=== PATIENT | female | born 1985 | race Caucasian/White ===

== ENCOUNTER → 2018-04-03 12:35 | Outpatient (CLI) | payer OTHER, SELFPAY ==
[2018-04-03 15:43] LABS: Absolute Lymphocyte Count 1.36 X10^3/ul (0.83-4.51); Absolute Neutrophil Count 5.3 X10^3/uL (2.0-7.7); Basophil# 0.04 X10^3/uL; Basophil% 0.5 % (0-1); Eosinophil# 0.23 X10^3/uL; Eosinophils% 3.1 % (0-5); Hemoglobin 15.4 g/dl (12.0-15.0); Lymphocyte # 1.36 X10^3/ul (4.0); Lymphocyte % 18.3 % (19-41); Mean Corp Hgb Conc 34.2 g/gl (32-36); Mean Corpuscular Hgb 30.6 pg (27.0-32.0); Mean Corpuscular Volume 89.5 fL (81-99); Mean Platelet Vol. 11.1 fl (6.2-12.0); Monocyte# 0.53 X10^3/uL; Monocyte% 7.1 % (0-10); Neutrophil # 5.25 X10^3/uL (2.7-7.7); Neutrophil % 70.9 % (47-70); Platelet Count 213 K/mm3 (150-450); RBC Distribution Width CV 12.2 % (11.6-14.6); RBC Distribution Width SD 39.4 fl (35.1-43.9); Red Blood Count 5.03 M/mm3 (4.2-5.4); White Blood Count 7.4 K/mm3 (4.4-11.0)
[2018-04-03 15:44] LABS: ALB/GLOB Ratio 1.1 RATIO (0.9-2.4); AST(SGOT) 39 U/L (15-37); Alanine Aminotransfer ALT/SGPT 62 U/L (13-56); Albumin, Serum 3.9 g/dL (3.2-5.0); Alkaline Phosphatase 68 U/L (45-117); Anion Gap 8 (5-15); BUN 12 mg/dL (7-18); BUN/Creat Ratio 13.9 RATIO (10-20); CRP < 2.90 mg/L (0.0-3.0); Calcium,Total 8.7 mg/dL (8.5-10.1); Chloride 105 mmol/L (98-107); Creatinine, Serum 0.86 mg/dL (0.55-1.02); EST Glomerular Filtration Rate 82 mL/min (>60); Est Glom Filt Rate - Afr Amer 99 mL/min (>60); Globulin 3.5 g/dL (2.2-4.2); Glucose 78 mg/dL (74-106); Potassium 4.4 mmol/L (3.5-5.1); Protein, Total 7.4 g/dL (6.4-8.2); Sodium Level 140 mmol/L (136-145)
[2018-04-03 16:02] LABS: POSITIVE COUNT NO; POSITIVE DIFFERENTIAL NO; POSITIVE MORPHOLOGY NO
[2018-04-03 17:00] LABS: Erythrocyte Sedimentation Rate 2 mm/hr (0-20)
== END ==
PROVIDERS: Family Provider Family Medicine; PCP Family Medicine; Visit Provider Family Medicine
DX: R10.30 Lower abdominal pain, unspecified (principal)
CPT/HCPCS: 36415; 80053; 85025; 85652; 86140

== ENCOUNTER → 2018-05-03 14:55 | Outpatient (CLI) | payer OTHER, SELFPAY ==
[2018-05-05 16:09] LABS: Endomysial Antibody IgA Negative (Negative)
[2018-05-08 11:44] LABS: Immunoglobulin A 187 mg/dL (87-352); t-Transglutaminase IgA <2 U/mL (0-3)
--- OUTSIDE RECORDS SUMMARY | 2018-06-19 20:23 | XMS RPT_ITS ---
:1985 Author Organization OHIP Care Team Providers Name Role Phone Jorge Andujar Attending Unavailable Jorge Andujar Referring Unavailable Sushil Naqvi Primary Care Unavailable Sushil Naqvi Attending Unavailable Sushil Naqvi Primary Care Unavailable PROBLEMS PROBLEMS No Problem Records FoundPROCEDURES PROCEDURES No Procedure Records FoundRESULTS RESULTS CELIAC DISEASE Collected: 05/03/2018 Status: F Source: [place] PROFILE 2:59 PM [facility] REPOSITORY TYPE CODE TESTS RESULT OUT OF RANGE REFERENCE UNITS LAB L3200.1400 87-352 mg/dL Normal IMMUNO A 187 Result Comment: Performed at: - [facility] [address] [id number] Log Stacker Operator: Jorge Kern PhD, Phone: [phone] LAB L3367.2655 0-3 U/mL Normal tTG IGA <2 Result Comment: Negative 0 - 3 Weak Positive 4 - 10 Positive >10 Tissue Transglutaminase (tTG) has been identified as the endomysial antigen. Studies have demonstr- ated that endomysial IgA antibodies have over 99% specificity for gluten sensitive enteropathy. LAB L3410.1401 Negative Normal ENDOMYSIAL IGA Negative Performed By: #### L3410.2400 #### [facility] (refer to report for specific site) refer to report for address and phone number COMPREHENSIVE METABOLIC Collected: 04/03/2018 Status: F Source: HENRRY PROFIL 12:39 PM [facility] REPOSITORY TYPE CODE TESTS RESULT OUT OF RANGE REFERENCE UNITS LAB L501.0100 74-106 mg/dL Normal GLU 78 Result Comment: Please note revised GLUCOSE reference range effective 2017. LAB L501.1000 7-18 mg/dL Normal BUN 12 LAB L501.1100 0.55-1.02 mg/dL Normal CREAT,SERUM 0.86 Result Comment: The validity of the calculated GFR AND GFRAA in patients over 70 years has not been determined. Clinical correlation is essential. LAB L501.1110 >60 mL/min Normal EST GFR 82 Result Comment: Non- GFR Calc LAB L501.1115 >60 mL/min Normal EST GFR - AA 99 Result Comment: GFR Calc LAB L501.1300 10-20 RATIO Normal BUN/CRE 13.9 LAB L501.1500 6.4-8.2 g/dL T Normal PROT 7.4 LAB L501.1800 3.2-5.0 g/dL Normal ALB 3.9 LAB L501.1950 2.2-4.2 g/dL Normal GLOB 3.5 LAB L501.2000 0.9-2.4 RATIO Normal A/G 1.1 LAB L501.2200 8.5-10.1 mg/dL CA Normal 8.7 LAB L501.4100 15-37 U/L High AST 39 LAB L501.4305 45-117 U/L Normal ALK P 68 LAB L501.4405 13-56 U/L High ALT 62 LAB L501.4600 0.20-1.00 mg/dL T Normal BILI 0.30 LAB L501.5300 136-145 mmol/L NA Normal 140 LAB L501.5600 3.5-5.1 mmol/L K Normal 4.4 LAB L501.5900 98-107 mmol/L CL Normal 105 LAB L501.6100 21.0-32.0 mmol/L Normal CO2 27.0 LAB L501.6200 5-15 Normal GAP 8 Performed By: #### L500.4050, L501.6710 #### [facility] [address] [place], [address] CRP Collected: 04/03/2018 Status: F Source: [place] 12:39 PM [facility] REPOSITORY TYPE CODE TESTS RESULT OUT OF RANGE REFERENCE UNITS LAB L501.6710 0.0-3.0 mg/L Normal < 2.90 C-REACTIVE PROT Result Comment: C-Reactive Protein (CRP) provides useful information for the diagnosis, therapy and monitoring of inflammatory processes and associated diseases. For the evaluation of Relative Risk for Cardiovascular Disease, a High Sensitivity CRP (HSCRP) should be ordered. Performed By: #### L500.4050, L501.6710 #### [facility] [place], [address] CBC W/DIFF, AUTOMATED Collected: 04/03/2018 Status: F Source: [place] 12:39 PM [facility] REPOSITORY TYPE CODE TESTS RESULT OUT OF RANGE REFERENCE UNITS LAB L100.1000 4.4-11.0 K/mm3 Normal WBC 7.4 LAB L100.1200 4.2-5.4 M/mm3 Normal RBC 5.03 LAB L100.1300 12.0-15.0 g/dl High HGB 15.4 LAB L100.1400 37-47 % Normal HCT 45.0 LAB L100.1500 81-99 fL Normal MCV 89.5 LAB L100.1600 27.0-32.0 pg Normal MCH 30.6 LAB L100.1700 32-36 g/gl Normal MCHC 34.2 LAB L100.1810 11.6-14.6 % Normal RDW CV 12.2 LAB L100.1820 35.1-43.9 fl Normal RDW SD 39.4 LAB L100.1900 150-450 K/mm3 Normal PLT 213 LAB L100.2000 6.2-12.0 fl Normal MPV 11.1 LAB L100.2100 47-70 % High NEUT% 70.9 LAB L100.2200 19-41 % Low LY% 18.3 LAB L100.2300 0-10 % Normal MONO% 7.1 LAB L100.2400 0-5 % Normal EO% 3.1 LAB L100.2500 0-1 % Normal BASO% 0.5 LAB L100.2550 0.0-0.9 % Normal IM GRAN % 0.100 Result Comment: IG% - Immature Granulocytes (promyelocytes, myelocytes and metamyelocytes) > 1% indicates that a LEFT SHIFT is Present. LAB L100.2620 2.0-7.7 X10 3/uL Normal Absolute Neut 5.3 LAB L100.2720 0.83-4.51 X10 3/ul Normal Absolute Lymph 1.36 Performed By: #### L100.0100, L101.9900 #### [facility] [address] [place], [address] ERYTHROCYTE SED RATE Collected: 04/03/2018 Status: F Source: [place] 12:39 PM [facility] REPOSITORY TYPE CODE TESTS RESULT OUT OF RANGE REFERENCE UNITS LAB L102.0000 0-20 mm/hr Normal SED RATE 2 Performed By: #### L100.0100, L101.9900 #### [facility] [address] [place], [address] ALLERGIES ALLERGIES No Allergies Records FoundENCOUNTERS ENCOUNTERS ADMIT/DISCHARGE ACCOUNT ADMITTING ENCOUNTER LOCATION SOURCE NUMBER CLASS 05/03/2018 [id number] [facility] ing:MTLAB Repository 04/03/2018 [id number] Ambulatory [facility] 4 [facility] ing:MFPLAB Repository PAYERS PAYERS ENCOUNTER GUARANTOR PAYER SUBSCRIBER SOURCE 05/03/2018 RAJ VAZQUEZ Primary RAJ Almanza [id number] Insurance:CORESOURCEP IMHOFFDOB: [facility] Number: [id number] [id number] [place]ository [place] [address]Brx: Date:[id number] [place] () [id number]: 05/03/2018 Secondary NOT GIVENUNK Henrry Insurance:SELF PAY [facility] Number: Effective Repository Date:2018-05-03 04/03/2018 RAJ VAZQUEZ Primary RAJ Almanza [id number] Insurance:CORESOURCEP IMHOFFDOB: [facility] Number: [id number] [id number] [place]ository [place] [address]Mdn: Date:[id number]. [place] () [id number]: 04/03/2018 Secondary NOT GIVENUNK Henrry Insurance:SELF PAY [facility] Number: Effective Repository Date:2018-04-03
== END ==
PROVIDERS: Family Provider Family Medicine; PCP Family Medicine; Referring Provider Internal Medicine Gastroenterology; Visit Provider Internal Medicine Gastroenterology
DX: R19.7 Diarrhea, unspecified (principal)
CPT/HCPCS: 36415; 82784; 83516; 86255

== ENCOUNTER → 2018-12-11 15:57 | Outpatient (CLI) | payer OTHER, SELFPAY ==
[2018-12-11 14:52] VITALS: BMI 25.2
[2018-12-11 17:16] LABS: Absolute Lymphocyte Count 1.89 X10^3/uL (0.83-4.51); Absolute Neutrophil Count 9.5 X10^3/uL (2.0-7.7); Basophil# 0.07 X10^3/uL; Basophil% 0.6 % (0-1); Eosinophil# 0.27 X10^3/uL; Eosinophils% 2.1 % (0-5); Hematocrit 38.9 % (37-47); Hemoglobin 13.3 g/dL (12.0-15.0); Lymphocyte # 1.89 X10^3/ul (4.0); Mean Corp Hgb Conc 34.2 g/dL (32-36); Mean Corpuscular Hgb 30.6 pg (27.0-32.0); Mean Corpuscular Volume 89.6 fL (81-99); Monocyte% 6.4 % (0-10); NRBC Flagged by Analyzer 0 % (0-5); Neutrophil # 9.52 X10^3/uL (2.7-7.7); Neutrophil % 75.6 % (47-70); Platelet Count 215 K/mm3 (150-450); RBC Distribution Width CV 11.9 % (11.6-14.6); Red Blood Count 4.34 M/mm3 (4.2-5.4); White Blood Count 12.6 K/mm3 (4.4-11.0)
[2018-12-11 18:24] LABS: HIV - WCH Non-Reactive (Nonreactive); Rubella IgG 314.2 IU/mL
[2018-12-16 05:08] LABS: Rapid Plasmin Reagin (RPR) NONREACTIVE (NONREACTIVE)
== END ==
PROVIDERS: Nurse Practitioner Women's Health; Family Provider Family Medicine; PCP Family Medicine; Referring Provider Obstetrics & Gynecology; Visit Provider Obstetrics & Gynecology
DX: Z34.01 Encounter for supervision of normal first pregnancy, first trimester (principal)
CPT/HCPCS: 36415; 85025; 86592; 86703; 86762; 86850; 86900

== ENCOUNTER → 2018-12-11 | Outpatient (CLI) | payer OTHER, SELFPAY ==
[2018-12-11 20:16] LABS: Chlamydia Trachomatis by PCR Negative (Negative); Neisserai gonorrhoeae by PCR Negative (Negative); Probe Check PASS; Sample Adequacy Control PASS; Specimen Processing Control PASS
[2018-12-15 15:12] LABS: HPV APTIMA, High Risk Negative (Negative)
== END | disposition home or self-care (01) ==
LOC: LABSPEC 17:04
PROVIDERS: Referring Provider Nurse Practitioner Women's Health; Visit Provider Nurse Practitioner Women's Health
DX: Z34.01 Encounter for supervision of normal first pregnancy, first trimester (principal); Z12.4 Encounter for screening for malignant neoplasm of cervix
CPT/HCPCS: 87086; 87491; 87591; 87624; 88175; G0145

== ENCOUNTER → 2019-01-12 | Outpatient (CLI) | payer OTHER, SELFPAY ==
[2019-01-12 14:20] VITALS: BMI 25.2
== END | disposition home or self-care (01) ==
PROVIDERS: Family Provider Family Medicine; PCP Family Medicine; Referring Provider Obstetrics & Gynecology; Visit Provider Obstetrics & Gynecology
DX: Z34.82 Encounter for supervision of other normal pregnancy, second trimester (principal)
CPT/HCPCS: 36415

== ENCOUNTER → 2019-04-13 16:33 | Outpatient (CLI) | payer OTHER, SELFPAY ==
[2019-04-13 15:52] VITALS: BMI 26.7
[2019-04-13 17:03] LABS: Absolute Neutrophil Count 8.3 X10^3/uL (2.0-7.7); Basophil# 0.05 X10^3/uL; Basophil% 0.4 % (0-1); Eosinophil# 0.31 X10^3/uL; Eosinophils% 2.8 % (0-5); Hematocrit 35.4 % (37-47); Hemoglobin 11.7 g/dL (12.0-15.0); Lymphocyte % 17.1 % (19-41); Mean Corp Hgb Conc 33.1 g/dL (32-36); Mean Corpuscular Hgb 31.5 pg (27.0-32.0); Mean Corpuscular Volume 95.4 fL (81-99); Mean Platelet Vol. 10.5 fl (6.2-12.0); Monocyte# 0.58 X10^3/uL; Monocyte% 5.2 % (0-10); NRBC Flagged by Analyzer 0 % (0-5); Neutrophil # 8.26 X10^3/uL (2.7-7.7); Neutrophil % 74.1 % (47-70); Platelet Count 194 K/mm3 (150-450); RBC Distribution Width CV 12.2 % (11.6-14.6); RBC Distribution Width SD 42.9 fl (35.1-43.9); Red Blood Count 3.71 M/mm3 (4.2-5.4); White Blood Count 11.1 K/mm3 (4.4-11.0)
[2019-04-13 17:27] LABS: Glucose Challenge Gest 1H 50g 132 mg/dL (70-140)
== END ==
PROVIDERS: Referring Provider Obstetrics & Gynecology; Visit Provider Obstetrics & Gynecology
DX: Z34.02 Encounter for supervision of normal first pregnancy, second trimester (principal)
CPT/HCPCS: 36415; 82950; 85025

== ENCOUNTER → 2019-06-22 | Outpatient (CLI) | payer OTHER, SELFPAY ==
[2019-06-22 15:46] VITALS: BMI 29.9
== END | disposition home or self-care (01) ==
LOC: LABSPEC 16:51
PROVIDERS: Referring Provider Obstetrics & Gynecology; Visit Provider Obstetrics & Gynecology
DX: Z34.93 Encounter for supervision of normal pregnancy, unspecified, third trimester (principal); Z3A.37 37 weeks gestation of pregnancy
CPT/HCPCS: 87081

== ENCOUNTER 2019-07-04 14:25 | Inpatient (IN) | payer OTHER, SELFPAY ==
[2019-06-29 15:50] VITALS: BMI 28.0
[2019-07-03 10:16] VITALS: BMI 28.0
[2019-07-04 14:05] VITALS: BMI 30.2
[2019-07-04 14:24] LABS: ROM Internal Control Test YES-OK TO RESULT pt. (Internal QC)
[2019-07-04 14:25] LABS: ROM Patient Test POSITIVE (Negative)
[2019-07-04] MEDS: Lactated Ringers 1,000 ML 50 ML IV (14:45)
[2019-07-04 15:18] LABS: Absolute Lymphocyte Count 1.45 X10^3/uL (0.83-4.51); Absolute Neutrophil Count 9.8 X10^3/uL (2.0-7.7); Basophil# 0.05 X10^3/uL; Basophil% 0.4 % (0-1); Eosinophils% 1.6 % (0-5); Hematocrit 34.7 % (37-47); Hemoglobin 11.8 g/dL (12.0-15.0); Lymphocyte # 1.45 X10^3/ul (4.0); Lymphocyte % 11.7 % (19-41); Mean Corpuscular Hgb 31.9 pg (27.0-32.0); Mean Corpuscular Volume 93.8 fL (81-99); Mean Platelet Vol. 11.4 fl (6.2-12.0); Monocyte# 0.86 X10^3/uL; Monocyte% 6.9 % (0-10); NRBC Flagged by Analyzer 0 % (0-5); Neutrophil # 9.77 X10^3/uL (2.7-7.7); Neutrophil % 78.8 % (47-70); Platelet Count 164 K/mm3 (150-450); RBC Distribution Width CV 11.9 % (11.6-14.6); RBC Distribution Width SD 40.9 fl (35.1-43.9); White Blood Count 12.4 K/mm3 (4.4-11.0)
[2019-07-04] MEDS: 0.9% Saline Lock 10 ML Syringe IV (20:36)
--- NOTE | 2019-07-04 23:04 | HP.PCM_ITS ---
- Problem List (1) Active labor at term Status: Acute (2) Status: Acute Qualifiers: Comment: Declines carrier screen. NIPT low risk, anatomy normal (3) Supervision of normal first Status: Acute Qualifiers: Comment: PRR CHASE 07/13/19 surprise, Spouse Luis History Date of Admission: 07/04/19 Final CHASE: 07/13/19 Gestational age: 38 Weeks and 5 Days History of this : This is a 33 year-old, , at 38 weeks gestational age presents IAL with SROM. she denies any vb has clear LOF admits good fm. Surgical History: Surgical History (Last Reviewed 07/03/19 @ 09:34 by Harriet Paez) History of removal of skin mole Z98.890, Z87.2 Allergies adhesive tape Adverse Reaction (Mild, Verified 07/04/19 14:08) hives latex Adverse Reaction (Verified 07/04/19 14:08) Rash Home Medications: Home Medications vitamin#30 30 mg iron-10 mg iron-folic acid 1 mg-omg3 capsule 1 cap PO DAILY cap 01/12/19 Smoking Status: Never smoker Alcohol: None Number of Fetus(es): 1 NST - FHR Rate Baby A Baseline: 140 Variability:: Moderate Accelerations:: 15 x 15 Decelerations:: None NST Reactive:: Yes FHR Category:: Category I Uterine Activity:: q 3-5 History Past Pregnancies: Past Pregnancies Delivery Date Name GA/ Weeks Outcome Route Wt Infant Sex Labor Length Anesthesia Delivery Location Provider FOB Labs: Mom's Labs & Results 07/04/19 07/04/19 07/04/19 13:55 13:55 14:45 WBC 12.4 H RBC 3.70 L Hgb 11.8 L Hct 34.7 L MCV 93.8 MCH 31.9 MCHC 34.0 RDW Std Deviation 40.9 RDW Coeff of Elvis 11.9 Plt Count 164 MPV 11.4 Immature Gran % (Auto) 0.600 Neut % (Auto) 78.8 H Lymph % (Auto) 11.7 L Davie % (Auto) 6.9 Eos % (Auto) 1.6 Baso % (Auto) 0.4 Absolute Neuts (auto) 9.8 H Absolute Lymphs (auto) 1.45 Nucleated RBC % 0 Vag Amniotic Fld Detect POSITIVE H Cancelled Hep Bs Antigen Blood Type Antibody Screen 07/04/19 07/04/19 14:45 14:55 WBC RBC Hgb Hct MCV MCH MCHC RDW Std Deviation RDW Coeff of Elvis Plt Count MPV Immature Gran % (Auto) Neut % (Auto) Lymph % (Auto) Davie % (Auto) Eos % (Auto) Baso % (Auto) Absolute Neuts (auto) Absolute Lymphs (auto) Nucleated RBC % Vag Amniotic Fld Detect Hep Bs Antigen Pending Blood Type O POSITIVE Antibody Screen NEGATIVE Course Did the patient receive Yes care? Labs Blood Type: O RH: POSITIVE RPR/VDRL/Syphilis Nonreactive Rubella status Immune HbSAg Collected on Admission Date Done: 07/04/19 Chlamydia Negative Gonorrhea Negative HIV/AIDS Non-Reactive Group B Strep: Negative Current Obstetrical History Gestational Diabetes No Incompetent Cervix No Infertility No IUGR No Macrosomia No Hypertension/Pre-eclampsia No Placenta Previa/Abruption No PTL/PROM No Uterine anomaly No Oligohydramnios No Polyhydramnios No Multiple gestation No Past Medical History Asthma No Diabetes No Hypertension No Heart disease No Mitral valve prolapse No Neurologic/Seizure disorder/ No Migraines Kidney disease No Liver disease No Varicosities No Clotting disorders/Hx of DVT No Thyroid Dysfunction No Other medical diseases No Psychiatric disorders No Major trauma No Abnormal PAP smear No Sleep apnea No Mammogram in the last 2 years No Social History Marital Status: Alleged father Luis Tello Hx Smoking No Smoking Status Never smoker Expected Infant Delivery Method: Spontaneous Vaginal Review of Systems Constitutional: Denies: Fever, Malaise Eyes: Denies: Blurred vision, Vision Change HEENT: Denies: Head Aches, Visual Changes Cardiovascular: Denies: Chest Pain, Palpitations Respiratory: Denies: Cough, Shortness of Breath, Wheezing Gastrointestinal: Denies: Abdominal Pain, Diarrhea, Nausea, Vomiting Genitourinary: Denies: Dysuria, Hematuria Musculoskeletal: Denies: Joint Pain, Muscle pain Skin: Denies: Lesions, Rash Neurological: Denies: Blurred vision, Focal weakness, Headaches Psychiatric: Denies: Anxiety, Depression Endocrine: Denies: Heat/ Cold Intolerance Hematologic/ Lymphatic: Denies: Easy Bruising, Easy Bleeding Physical Exam General: Alert, Cooperative, No apparent distress HEENT: Atraumatic, Normocephalic. Negative for: Thyromegaly, Lymphadenopathy Cardiovascular: Regular rate Lungs: Normal air movement Abdomen: Soft, Non Tender, Gravid Neurological: Deep Tendon Reflexes 2+/4 and Symmetrical, Neuro grossly intact. Negative for: Clonus PROFESSIONAL HOUSING CONSULTANT: Normal external genitalia. Negative for: Vulvar lesions Estimated gestational size: Appropriate for gestational size Presentation: Cephalic Assessment/Plan All Active Problems (Last Reviewed 07/03/19 @ 09:34 by Harriet Paez) Active labor at term (Acute) (Acute) Supervision of normal first (Acute) This is a 33 year-old, at 38 weeks gestational age presents IAL. Patient presents IAL, plan expectant management for , pitocin/AROM if needed. Pain management: minimal intervention. GBS negative. Management of any complications: none I have reviewed the [facility] and made any clinically relevant updates.
--- NOTE | 2019-07-04 23:08 | PCM.OPRPT ---
Problem List (1) Active labor at term Status: Acute (2) Status: Acute Qualifiers: Comment: Declines carrier screen. NIPT low risk, anatomy normal (3) Supervision of normal first Status: Acute Qualifiers: Comment: PRR CHASE 07/13/19 surprise, Spouse Luis Vaginal Delivery Maternal Presentation: Active Labor ial srom Amniotic Membrane Rupture Type: Spontaneous at home Amniotic Fluid Description: Clear Final CHASE: 07/13/19 Gestational age: 38 Weeks and 5 Days Date of Procedure: 07/04/19 Pre-Operative Diagnosis: ial srom Post-Operative Diagnosis: same Surgery/ Procedure Performed: Spontaneous Vaginal Delivery Type of Anesthesia: None Description of Procedure: Patient began pushing and delivered the head in the [AZ] presentation. The head was delivered atraumatically [and a loose nuchal cord ?1 was identified and easily reduced over the 's head]. The anterior and posterior shoulders delivered without complication followed by the rest of the and the was placed on the maternal abdomen. Delayed cord clamping was employed for approximately 60 seconds. Cord was clamped and cut and gentle traction was applied to the cord and the placenta delivered spontaneously immediately following it was noted to be intact with three-vessel cord. The perineum and vagina were inspected and [noted to have no laceration]. EBL was [100 cc]. Patient and infant tolerated delivery well. Presentation: [place] Placental Delivery Description: Spontaneous Placenta Disposition: [facility] Cord Vessel Description: 3 Vessels Cord Entanglement: None Estimated Blood Loss: 200 Infant A gender: Female Episiotomy Description: None Laceration: None Medications given after delivery: IV Pitocin Complications: None Multi Select Codes - Urinary/Genital Urinary/Genital CPT Codes: 29079 Vaginal Delivery [facility]
[2019-07-04] MEDS: Oxytocin 30 units/NS 500 ml 30 UNITS/500 ML IV.SOLN 334 UNITS IV (23:48)
[2019-07-05] MEDS: Naproxen 250 MG Tablet 500 MG PO ×2 (00:44→09:06)
[2019-07-05 01:07] LABS: Hepatitis B Surface Antigen Non-Reactive (Nonreactive)
[2019-07-05 04:25] VITALS: BP 106/61; PULSE 71; RESP 18; TEMP 36.8
--- NOTE | 2019-07-05 07:47 | PCM.PN.OB ---
Patient Problems: Active and Suspected Problems (Last Reviewed 07/03/19 @ 09:34 by Harriet Paez) Active labor at term (Acute) Subjective: Doing well, no complaints.Pain controlled. Denies CP, SOB, N,V. Ambulating well, tolerating po. Lochia moderate, going well. - Physical Exam Vitals/I&O's: Vital Signs Temp Pulse Resp BP 98.2 F 71 18 106/61 07/05/19 04:25 07/05/19 04:25 07/05/19 04:25 07/05/19 04:25 Oxygen Delivery Method Room Air Weight: 193 lb 1.999 oz Body Mass Index (BMI) 30.2 Intake and Output for Last 24 Hours 07/03/19 07/04/19 07/05/19 23:59 23:59 23:59 Intake Total 1192.5 / 1192.5 498.22 / 498.22 Output Total 600 / 600 Balance 592.5 / 592.5 498.22 / 498.22 General: Alert, Oriented x3 Abdomen: Soft, Non Tender, - - FF below U Laboratory Results 07/04/19 13:55: Vag Amniotic Fld Detect POSITIVE H 07/04/19 13:55: Vag Amniotic Fld Detect Cancelled 07/04/19 14:45: WBC 12.4 H, RBC 3.70 L, Hgb 11.8 L, Hct 34.7 L, MCV 93.8, MCH 31.9, MCHC 34.0, RDW Std Deviation 40.9, RDW Coeff of Elvis 11.9, Plt Count 164, MPV 11.4, Immature Gran % (Auto) 0.600, Neut % (Auto) 78.8 H, Lymph % (Auto) 11.7 L, Alfalfa % (Auto) 6.9, Eos % (Auto) 1.6, Baso % (Auto) 0.4, Absolute Neuts (auto) 9.8 H, Absolute Lymphs (auto) 1.45, Nucleated RBC % 0 07/04/19 14:45: Blood Type O POSITIVE, Antibody Screen NEGATIVE 07/04/19 14:55: Hep Bs Antigen Non-Reactive Current Medications Acetaminophen (Tylenol) 1,000 mg PO Q8H PRN PRN PRN Reason: Pain Score 1-3/10 Bisacodyl (Dulcolax) 10 mg RECTAL UD PRN PRN Reason: If no BM Dibucaine (Dibucaine) 1 applic TOPICAL TID PRN PRN; Protocol PRN Reason: Discomfort Hydrocortisone (Hytone) 1 applic TOPICAL TID PRN PRN; Protocol PRN Reason: Discomfort Methylergonovine Maleate (Methergine) 0.2 mg IM X1 PRN PRN Reason: Excess bleeding/uterine atony Naproxen (Naprosyn) 500 mg PO Q8H PRN PRN PRN Reason: Pain Score 1-3/10 Last Admin: 07/05/19 00:44 Dose: 500 mg Documented by: Ondansetron HCl (Zofran) 4 mg IV Q4H PRN PRN PRN Reason: Nausea Oxycodone HCl (Oxyir) 5 - 10 mg PO Q4H PRN PRN PRN Reason: Pain Score 4-10/10 Senna/Docusate Sodium (Senokot-S, Gela-Colace) 1 - 2 tablet PO DAILY PRN PRN PRN Reason: Constipation Simethicone (Mylicon) 80 mg PO PCHS PRN PRN Reason: Indigestion/Stomach pain Sodium Chloride () 5 - 15 ml IV UD PRN PRN Reason: SALINE FLUSH Medical Necessity - Tobacco Use Smoking Status: Never smoker Assessment/Plan All Active Problems (Last Reviewed 07/03/19 @ 09:34 by Harriet Paez) Active labor at term (Acute) (Acute) Supervision of normal first (Acute) s/p PPD # 1 1. routine post delivery care 2. breast feeding- support given 3. rh positive 4. rubella immune
[2019-07-05 08:33] VITALS: BP 121/75; PULSE 74; RESP 16; TEMP 37.1; O2SAT 98
[2019-07-05 10:53] VITALS: BP 112/69; PULSE 72; RESP 16; TEMP 36.6
[2019-07-05 14:00] VITALS: BP 118/64; PULSE 68; RESP 16; TEMP 36.6; O2SAT 98
[2019-07-05 20:48] VITALS: BP 111/69; PULSE 66; RESP 16; TEMP 36.7; O2SAT 98
[2019-07-06 02:50] VITALS: BP 102/57; PULSE 61; RESP 17; TEMP 36.4
[2019-07-06] MEDS: Naproxen 250 MG Tablet 500 MG PO (04:26)
--- NOTE | 2019-07-06 08:39 | DCINST_ITS ---
Discharge Diet: No Restrictions Discharge Activity: Return to Normal Activity, May not drive while taking narcotic pain medications., May Shower May resume sexual activity in: 4-6 weeks Call your doctor if your incision/area has: Continuous Slow Oozing, Sudden Increased Bleeding, Increased Pain/ Swelling, Increased Redness, Foul Smelling Discharge Additional Instructions: If you experience any of the following, contact your healthcare provider. * Bleeding that soaks a pad every hour for 2 hours * Fever 100.4 or higher * Unrelieved incision or abdominal pain * Swelling, redness, discharge or bleeding from your incision or episiotomy site * Your incision begins to separate * Problems urinating (including inability to urinate or burning while urinating). * Visual changes * Severe headache * Flu-like symptoms * Pain or redness in one of both of your breasts * Pain, warmth, tenderness or swelling in your legs, especially the calf area * Frequent nausea and vomiting * Symptoms of depression or anxiety If you experience any of the following, call 911 or go to the nearest Emergency Room. * Chest pain * Problems breathing * Seizure activity * Partial or complete paralysis of a body part, slurred speech, weakness or drooping of the face, or a sudden inability to walk or hold your balance Allergies/Adverse Reactions: Allergies adhesive tape Adverse Reaction (Mild, Verified 07/04/19 14:08) hives latex Adverse Reaction (Verified 07/04/19 14:08) Rash Medications to take at Discharge vitamin#30 30 mg iron-10 mg iron-folic acid 1 mg-omg3 capsule 1 cap PO DAILY cap 01/12/19 Please Follow Up With: Basia Duran MD - [phone] When: Call to make an appointment with your doctor in 6 weeks. If you had elevated Blood pressure or 4th degree laceration you will need to be seen in 2 weeks. Primary Care Physician: Care Physician,No Primary [Primary Care Provider] - Test Results: Test results from this visit will be discussed in further detail at your follow- up appointment, if applicable.
--- NOTE | 2019-07-06 08:39 | PCM.DCVAG ---
Discharge Diet: No Restrictions Discharge Activity: Return to Normal Activity, May not drive while taking narcotic pain medications., May Shower May resume sexual activity in: 4-6 weeks Call your doctor if your incision/area has: Continuous Slow Oozing, Sudden Increased Bleeding, Increased Pain/ Swelling, Increased Redness, Foul Smelling Discharge Additional Instructions: If you experience any of the following, contact your healthcare provider. Bleeding that soaks a pad every hour for 2 hours Fever 100.4 or higher Unrelieved incision or abdominal pain Swelling, redness, discharge or bleeding from your incision or episiotomy site Your incision begins to separate Problems urinating (including inability to urinate or burning while urinating). Visual changes Severe headache Flu-like symptoms Pain or redness in one of both of your breasts Pain, warmth, tenderness or swelling in your legs, especially the calf area Frequent nausea and vomiting Symptoms of depression or anxiety If you experience any of the following, call 911 or go to the nearest Emergency Room. Chest pain Problems breathing Seizure activity Partial or complete paralysis of a body part, slurred speech, weakness or drooping of the face, or a sudden inability to walk or hold your balance Allergies/Adverse Reactions: Allergies adhesive tape Adverse Reaction (Mild, Verified 07/04/19 14:08) hives latex Adverse Reaction (Verified 07/04/19 14:08) Rash Medications to take at Discharge vitamin#30 30 mg iron-10 mg iron-folic acid 1 mg-omg3 capsule 1 cap PO DAILY cap 01/12/19 Please Follow Up With: Basia Duran MD - [phone] When: Call to make an appointment with your doctor in 6 weeks. If you had elevated Blood pressure or 4th degree laceration you will need to be seen in 2 weeks. Primary Care Physician: Care Physician,No Primary [Primary Care Provider] - Test Results: Test results from this visit will be discussed in further detail at your follow-up appointment, if applicable.
--- NOTE | 2019-07-06 08:39 | PCM.PN.OB ---
Patient Problems: Active and Suspected Problems (Last Reviewed 07/03/19 @ 09:34 by Harriet Paez) Active labor at term (Acute) Subjective: doing well no complaints pain controlled no CP SOB N V ambulating well tolerating po lochia moderate, going well - Physical Exam Vitals/I&O's: Vital Signs Temp Pulse Resp BP Pulse Ox 97.5 F L 61 17 102/57 L 98 07/06/19 02:50 07/06/19 02:50 07/06/19 02:50 07/06/19 02:50 07/05/19 20:48 Oxygen Delivery Method Room Air Weight: 193 lb 1.999 oz Body Mass Index (BMI) 30.2 Intake and Output for Last 24 Hours 07/04/19 07/05/19 07/06/19 23:59 23:59 23:59 Intake Total 1192.5 / 1192.5 498.22 / 498.22 Output Total 600 / 600 Balance 592.5 / 592.5 498.22 / 498.22 General: Alert, Oriented x3 Current Medications Acetaminophen (Tylenol) 1,000 mg PO Q8H PRN PRN PRN Reason: Pain Score 1-3/10 Bisacodyl (Dulcolax) 10 mg RECTAL UD PRN PRN Reason: If no BM Dibucaine (Dibucaine) 1 applic TOPICAL TID PRN PRN; Protocol PRN Reason: Discomfort Hydrocortisone (Hytone) 1 applic TOPICAL TID PRN PRN; Protocol PRN Reason: Discomfort Methylergonovine Maleate (Methergine) 0.2 mg IM X1 PRN PRN Reason: Excess bleeding/uterine atony Naproxen (Naprosyn) 500 mg PO Q8H PRN PRN PRN Reason: Pain Score 1-3/10 Last Admin: 07/06/19 04:26 Dose: 500 mg Documented by: Ondansetron HCl (Zofran) 4 mg IV Q4H PRN PRN PRN Reason: Nausea Oxycodone HCl (Oxyir) 5 - 10 mg PO Q4H PRN PRN PRN Reason: Pain Score 4-10/10 Senna/Docusate Sodium (Senokot-S, Gela-Colace) 1 - 2 tablet PO DAILY PRN PRN PRN Reason: Constipation Simethicone (Mylicon) 80 mg PO PCHS PRN PRN Reason: Indigestion/Stomach pain Sodium Chloride () 5 - 15 ml IV UD PRN PRN Reason: SALINE FLUSH Medical Necessity - Tobacco Use Smoking Status: Never smoker Assessment/Plan All Active Problems (Last Reviewed 07/03/19 @ 09:34 by Harriet Paez) Active labor at term (Acute) (Acute) Supervision of normal first (Acute) s/p PPD # 1 1. routine post delivery care 2. breast feeding- support given 3. rh positive 4. rubella immune
[2019-07-06 10:05] VITALS: BP 106/74; PULSE 75; RESP 20; TEMP 36.4; O2SAT 99
== END 2019-07-06 12:25 | disposition home or self-care (01) | DRG 807 ==
LOC: WPOUT 14:27 → WP 14:28
PROVIDERS: Admitting Provider Obstetrics & Gynecology; Referring Provider Obstetrics & Gynecology; Visit Provider Obstetrics & Gynecology
DX: O69.81X0 Labor and delivery complicated by cord around neck, without compression, not applicable or unspecified (principal); Z37.0 Single live birth; Z3A.38 38 weeks gestation of pregnancy
CPT/HCPCS: 59025; 59050; 84112; 85025; 86850; 86900; 86901; 87340; J7120; A4216

== ENCOUNTER → 2019-10-24 16:30 | Outpatient (CLI) | payer OTHER, SELFPAY ==
[2019-10-24 13:41] VITALS: BMI 30.2
== END ==
PROVIDERS: Referring Provider Nurse Practitioner Women's Health; Visit Provider Nurse Practitioner Women's Health
DX: R30.0 Dysuria (principal)
CPT/HCPCS: 87077; 87086; 87088; 87186

== ENCOUNTER → 2022-01-05 | Outpatient (CLI) | payer OTHER, SELFPAY ==
[2022-01-05 17:02] LABS: Amphetamine Urine VISTA NEGATIVE (<1000 ng/mL); Barbiturate Urine VISTA NEGATIVE (< 200 ng/mL); Benzodiazepine Urine VISTA NEGATIVE (< 200 ng/mL); Cocaine Urine VISTA NEGATIVE (< 300 ng/mL); Ecstacy Urine VISTA NEGATIVE (< 500 ng/mL); Methadone Urine VISTA NEGATIVE (< 300 ng/mL); PCP Urine VISTA NEGATIVE (< 25 ng/mL); THC Urine VISTA NEGATIVE (< 50 ng/mL); Vista UDS pH Range 5
[2022-01-07 22:06] LABS: Chlamydia By Nucleic Acid AMP Negative (Negative)
[2022-01-08 11:56] LABS: Gonococcus By Nucleic Acid AMP Negative (Negative)
== END | disposition home or self-care (01) ==
LOC: LABSPEC 16:20
PROVIDERS: Referring Provider Obstetrics & Gynecology; Visit Provider Obstetrics & Gynecology
DX: Z34.00 Encounter for supervision of normal first pregnancy, unspecified trimester (principal)
CPT/HCPCS: 80307; 87086; 87491; 87591

== ENCOUNTER → 2022-01-14 | Outpatient (CLI) | payer OTHER, SELFPAY ==
[2022-01-14 12:08] LABS: NATERA MAILED SPECIMEN
[2022-01-14 12:32] LABS: Absolute Lymphocyte Count 1.98 X10^3/uL (0.83-4.51); Absolute Neutrophil Count 7.2 X10^3/uL (2.0-7.7); Basophil# 0.08 X10^3/uL; Basophil% 0.8 % (0-1); Eosinophil# 0.35 X10^3/uL; Eosinophils% 3.4 % (0-5); Hematocrit 35.4 % (37-47); Hemoglobin 12.3 g/dL (12.0-15.0); Lymphocyte # 1.98 X10^3/ul (0.83-4.51); Lymphocyte % 19.1 % (19-41); Mean Corp Hgb Conc 34.7 g/dL (32-36); Mean Corpuscular Hgb 31.1 pg (27.0-32.0); Mean Corpuscular Volume 89.6 fL (81-99); Mean Platelet Vol. 10.7 fl (6.2-12.0); Monocyte# 0.72 X10^3/uL; Monocyte% 6.9 % (0-10); NRBC Flagged by Analyzer 0 % (0-5); Neutrophil % 69.5 % (47-70); Platelet Count 214 K/mm3 (150-450); RBC Distribution Width CV 12.2 % (11.6-14.6); RBC Distribution Width SD 40.3 fl (35.1-43.9); Red Blood Count 3.95 M/mm3 (4.2-5.4); White Blood Count 10.4 K/mm3 (4.4-11.0)
[2022-01-14 13:47] LABS: HIV - WCH Non-Reactive (Nonreactive); Hepatitis B Surface Antigen Non-Reactive (Nonreactive); Hepatitis C Antibody Non-Reactive (Nonreactive); Rubella IgG Reactive (Nonreactive); Syphilis Antibodies Non-reactive
== END | disposition home or self-care (01) ==
LOC: LAB 11:05
PROVIDERS: Referring Provider Obstetrics & Gynecology; Visit Provider Obstetrics & Gynecology
DX: O09.521 Supervision of elderly multigravida, first trimester (principal); Z3A.00 Weeks of gestation of pregnancy not specified
CPT/HCPCS: 36415; 85025; 86703; 86762; 86780; 86803; 86850; 86900; 86901; 87340

== ENCOUNTER → 2022-05-11 | Outpatient (CLI) | payer OTHER, SELFPAY ==
--- NOTE | 2022-05-11 16:30 | US_ITS ---
STUDY: SECOND AND THIRD TRIMESTER OBSTETRICAL ULTRASOUND - LIMITED REASON FOR EXAM: Female, 36 years old low lying placenta-F/U LMP: PRIOR ULTRASOUND: None. TECHNIQUE: Transabdominal and limited transvaginal TECHNICAL QUALITY: Adequate. FINDINGS: There is a single intrauterine fetus. The fetus is in a cephalic presentation. There is demonstrated cardiac activity with a heart rate of 173 bpm. There is a normal amniotic fluid volume. The largest amniotic fluid pocket measures 3.3 cm. The placenta is posterior and not low-lying There are Grade 1 placental changes. The cervix measures 3.7 cm in length. BIOMETRY: BPD: 6.64 cm: 26 weeks, 5 days HC: 25.19 cm: 27 weeks, 2 days AC: 23.21 cm: 27 weeks, 4 days FL: 4.8 cm: 26 weeks, 0 days Age by LMP: 26 weeks, 6 days. CHASE by LMP: August 11, 2022. age by prior US: weeks, days. CHASE by prior US: . age by current US: 26 weeks, 6 days. CHASE by current US: August 11, 2022. Estimated weight: 1013 grams, +/- 152 grams, 44 percentile. US/OB Limited With Biometrics IMPRESSION: Viable intrauterine gestation approximately 26-27 weeks gestational age No evidence for placenta previa at this time Electronically Signed: Igor Carrington MD at 17:29 EST ,
== END | disposition home or self-care (01) ==
PROVIDERS: Referring Provider Obstetrics & Gynecology; Visit Provider Obstetrics & Gynecology
DX: O44.42 Low lying placenta NOS or without hemorrhage, second trimester (principal); O09.512 Supervision of elderly primigravida, second trimester; Z3A.24 24 weeks gestation of pregnancy
CPT/HCPCS: 76816

== ENCOUNTER → 2022-05-21 | Outpatient (CLI) | payer OTHER, SELFPAY ==
[2022-05-21 12:32] LABS: Absolute Lymphocyte Count 1.68 X10^3/uL (0.83-4.51); Absolute Neutrophil Count 8.4 X10^3/uL (2.0-7.7); Basophil# 0.05 X10^3/uL; Basophil% 0.5 % (0-1); Eosinophil# 0.28 X10^3/uL; Eosinophils% 2.6 % (0-5); Hematocrit 36.7 % (37-47); Lymphocyte # 1.68 X10^3/ul (0.83-4.51); Lymphocyte % 15.3 % (19-41); Mean Corp Hgb Conc 32.7 g/dL (32-36); Mean Corpuscular Hgb 31.1 pg (27.0-32.0); Mean Corpuscular Volume 95.1 fL (81-99); Mean Platelet Vol. 11.1 fl (6.2-12.0); Monocyte# 0.52 X10^3/uL; Monocyte% 4.7 % (0-10); NRBC Flagged by Analyzer 0 % (0-5); Neutrophil # 8.39 X10^3/uL (2.7-7.7); Neutrophil % 76.4 % (47-70); Platelet Count 206 K/mm3 (150-450); Red Blood Count 3.86 M/mm3 (4.2-5.4)
[2022-05-21 12:54] LABS: Glucose Challenge Gest 1H 50g 89 mg/dL (70-140)
[2022-05-21 13:26] LABS: HIV - WCH Non-Reactive (Nonreactive); Syphilis Antibodies Non-reactive
== END | disposition home or self-care (01) ==
LOC: LABSPEC 10:47
PROVIDERS: Visit Provider Obstetrics & Gynecology
DX: Z34.90 Encounter for supervision of normal pregnancy, unspecified, unspecified trimester (principal); Z3A.24 24 weeks gestation of pregnancy
CPT/HCPCS: 36415; 82950; 85025; 86703; 86780

== ENCOUNTER 2022-07-13 17:00 | Outpatient (CLI) | payer OTHER, SELFPAY ==
[2022-07-13 17:10] VITALS: BP 117/74; PULSE 67; PULSE 72; TEMP 36.7; O2SAT 100
--- NOTE | 2022-07-13 17:13 | US_ITS ---
STUDY: SECOND AND THIRD TRIMESTER OBSTETRICAL ULTRASOUND - LIMITED REASON FOR EXAM: Female, 36 years old. Growth. LMP: November 04, 2021. PRIOR ULTRASOUND: Biophysical profile, July 13, 2022. OB ultrasound, May 11, 2022. TECHNIQUE: Transabdominal TECHNICAL QUALITY: Adequate. FINDINGS: There is a single intrauterine fetus. The fetus is in a cephalic presentation. There is demonstrated cardiac activity with a heart rate of 132 bpm. There is a normal amniotic fluid volume. The largest amniotic fluid pocket measures 3.15 cm. The amniotic fluid index (AVTAR) is 10.61 cm. The placenta is posterior in location and is not low lying. There are Grade 2 placental changes. The cervix measures 3 cm in length. BIOMETRY: BPD: 8.59 cm: 34 weeks, 4 days HC: 32.97 cm: 37 weeks, 4 days AC: 32.26 cm: 36 weeks, 1 days FL: 6.47 cm: 33 weeks, 3 days Age by LMP: 35 weeks, 6 days. CHASE by LMP: August 11, 2022. age by prior US: 35 weeks, 6 days. CHASE by prior US: August 11, 2022. age by current US: 34 weeks, 3 days. CHASE by current US: August 21, 2022. Estimated weight: 2636 grams, +/- 395 grams, 35 percentile. Gender: Indeterminant US/OB Limited With Biometrics IMPRESSION: 1. Live single intrauterine at 34 weeks, 3 days. CHASE is August 21, 2022. This is 10 days behind expected gestational age by prior ultrasound. 2. EFW of 2636 g. 3. AVTAR of 10.61 cm. 4. Posterior grade 2 placenta. 5. Vertex presentation. Electronically Signed: Herb Cunningham DO at 20:02 [facility] ,
--- NOTE | 2022-07-13 17:13 | US_ITS ---
STUDY: OBSTETRICAL ULTRASOUND - BIOPHYSICAL PROFILE REASON FOR EXAM: Female, 36 years old deceleration in the doctor''s office. Concern for well being. LMP: November 04, 2021. PRIOR ULTRASOUND: July 13, 2022 and May 11, 2022. TECHNIQUE: Transabdominal TECHNICAL QUALITY: Adequate. FINDINGS: There is a single intrauterine fetus. The fetus is in a cephalic presentation. There is demonstrated cardiac activity with a heart rate of 138 bpm. There is a normal amniotic fluid volume. The largest amniotic fluid pocket measures 3.27 cm. The amniotic fluid index (AVTAR) is 11.25 cm. The placenta is posterior in location and is not low lying. There are Grade 2 placental changes. Age by LMP: 35 weeks, 6 days. CHASE by LMP: August 11, 2022. age by prior US: 35 weeks, 6 days. CHASE by prior US: August 11, 2022. age by current US: 34 weeks, 3 days. CHASE by current US: August 21, 2022. Gender: Indeterminant BIOPHYSICAL PROFILE: Breathing Movements (FBM): 2 Gross Body Movements (GBM): 2 Tone (FT): 2 Amniotic Fluid Volume (AFV): 2 TOTAL SCORE: 8 / 8 US/Biophysical Prof W/O Non Stres IMPRESSION: Normal biophysical profile of 12/28. Electronically Signed: Herb Cunningham DO at 20:11 EST ,
[2022-07-13 17:16] VITALS: BMI 27.5
--- NOTE | 2022-07-13 20:43 | OB.TRI.NOTE ---
HPI - General General Date of Admission: 07/13/22 HPI Narrative RAJ MOTT, is a 36 y/o @ 35 weeks 6 days who presents to L&D for monitoring after Dr. Duran heard a decel on hand held monitor in the office. Maternal Data Information CHASE Calculator Estimated Delivery Date Method Current WG Current Estimate 08/11/22 LMP (Certain) 37w 3d PFSH PFSH Medical History Low-lying placenta in second trimester Home Medications vitamin#30 30 mg iron-10 mg iron-folic acid 1 mg-omg3 capsule 1 cap PO DAILY 01/12/19 [History Last Taken 07/13/22 07:00] Allergy/AdvReac Type Severity Reaction Status Date / Time adhesive tape AdvReac Mild hives Verified 07/19/22 15:21 latex AdvReac Rash Verified 07/19/22 15:21 Family History Father Crohns disease Grandmother Colon cancer Surgical History History of removal of skin mole Social History adopted: No household members: spouse and children housing: house number of children: 1 current occupational status: employed current occupation: [employer] pets and animals: No history of recent travel: No sexually active: Yes Smoking Status: Never smoker second hand exposure: No alcohol intake: never substance use type: does not use well-balanced diet: daily or most days caffeine: No eating out: rarely or never during the past year weight has: remained stable what type of physical activity do you participate in: walking frequency: daily duration: 45-60 minutes/day gordon/scientology: Anabaptism seatbelt use: always do you feel safe at home: Yes additional social history: Luis History 2 Elective abortions Hx Para 1 Spontaneous abortions Hx # Term Pregnancies Ectopic pregnancies Hx # Pregnancies Multiple births # of living children 1 Past Pregnancies Del. Date Name GA/Weeks Outcome Route Bth Weight Gen Labor Lgth Anesthesia Del Locatn Provider FOB 07/04/19 Yulisa live - full term 6lbs 3ounces Female 12 hours none [facility] Dr. Roger Smith Visit Details Expected Delivery Route/Plan Labor Preferences- CB/BF classes: no labor support person: Luis labor intervention preferences: [] pain management options preferred: limited cut cord/dad catch: cord : yes PP control planned: discussed discussed possible routes of delivery and associated risks: [] special requests: [] Plans Covid status: discussed Flu vaccine: discussed Tdap vaccine: no Rhogam: na LARC form signed: yes Problem list reviewed and updated with the most current plan of care details and appropriate orders placed. Relevant counseling for the gestational age provided. Continue routine care and follow up unless otherwise noted in visit notes/problem list details OB Flowsheet Initial Weight: Not Recorded Date <del>?</del> EGA Weight BP Urine Prot <del>?</del> Glucose FHR FuHt Pres Dilation <del>?</del> Effaced St Visit Note 01/05/22 <del>?</del> 8w 6d 154 lb 2 oz 114/71 <del>?</del> 168 <del>?</del> SM- CRL 2.06cm cons with LMP 02/01/22 <del>?</del> 12w 5d 152 lb 8 oz 112/58 Negative <del>?</del> Negative 150 <del>?</del> SM- no vb cramping 03/03/22 <del>?</del> 17w 0d 155 lb 4 oz 122/77 Negative <del>?</del> Negative 143 <del>?</del> JV- no lof, vaginal bleeding, and + fm. anatomy scan orderd and scheduled for 03/15/22. 03/31/22 <del>?</del> 21w 0d 158 lb 112/62 Negative <del>?</del> Negative 144 21 <del>?</del> JV- no lof, vaginal bleeding, or cramping. low lying placenta 9mm from os. rpt at 28 weeks 04/26/22 <del>?</del> 24w 5d 162 lb 120/62 <del>?</del> 145 25 <del>?</del> SM- no vb lof good fm no reular ctx 05/21/22 <del>?</del> 28w 2d 169 lb 8 oz 105/67 Negative <del>?</del> Negative 140 28 <del>?</del> SM- no vb lof good fm no regular ctx 06/01/22 <del>?</del> 29w 6d 172 lb 8 oz 112/66 Negative <del>?</del> Negative 145 30 <del>?</del> JV- declines tdap and larc. no lof, vaginal bleeding, or dec fm. pt's daughter is having seizures from fevers. improving. 06/16/22 <del>?</del> 32w 0d 174 lb 6 oz 174 lb 12.8 oz 111/73 111/73 Negative <del>?</del> Negative 144 33 <del>?</del> JV- no lof, vaginal bleeding, or dec fm. daughter feeling better. no complaints. 06/28/22 <del>?</del> 33w 5d 174 lb 4 oz 118/74 Negative <del>?</del> Negative 147 34 <del>?</del> MH-No VB, LOF. Good FM. Denies concerns. 07/13/22 <del>?</del> 35w 6d 177 lb 4 oz 112/76 Negative <del>?</del> Negative 140 <del>?</del> SM- no vb lof good fm n oregular ctx SM- no vb lof good fm n oregular ctx had audible decel to 105 110 reocmmend further evaluation on l and d right now and growth scan for ama 07/19/22 <del>?</del> 36w 5d 176 lb 6 oz 113/75 Negative <del>?</del> Negative 130 <del>?</del> MH-No Vb, LOF. Improved movement. Reactive NST. Neg GBS ROS Constitutional Constitutional: Reports systems reviewed and no addt'l complaints, except as documented Gastrointestinal Gastrointestinal: Denies bloating, constipation, cramping, diarrhea, nausea or vomiting Genitourinary Genitourinary: Reports other Details: Denies vaginal odor, vaginal bleeding, or vaginal discharge ; Denies difficulty urinating or flank pain NST FHR Rate Baby A Baseline: 120 Variability:: Moderate Accelerations:: 15 x 15 Decelerations:: None (broken up low amplitude possible decel, unable to determine, no other decels) NST Reactive:: Yes FHR Category:: Category I Uterine Activity:: no contractions Assessment & Plan (1) AMA (advanced maternal age) multigravida 35+: COMMENT: growth us: 07/13 EFW- 35% (2) Supervision of normal first : COMMENT: PRR ,boy, CHASE 08/11/22, boy PC Yulisa, Spouse Luis (3) : QUALIFIERS: Weeks of gestation: 35 weeks Qualified Code(s): Z3A.35 - 35 weeks gestation of COMMENT: GBS neg. anatomy nl, NIPT low risk, declined Carrier testing, 05/12 nl growth (4) heart rate decelerations affecting management of mother: COMMENT: no significant decels picked up during extended monitoring. one broken up area, overall moderate variability and multiple accelerations. cat 1 strip. normal growth and emile 10 PLAN: dc to home to follow up in 2 days for repeat nst. kick counts discussed Charges/Coding Multi Select Codes Urinary/Genital Urinary/Genital CPT Codes: 23747-60 non-stress test Interp
--- NOTE | 2022-07-22 07:27 | OB.TRI.PN_ITS ---
Progress Notes Date of Service: 07/13/22 Progress Note: Patient presents for triage evaluation secondary to heart rate variable FHT: 130 Moderate variability reactive no decelerations category I tracing [place]: irregular Contractions Assessment and plan: reassuring heart rate, reassuring testing Reactive NST, reassuring maternal and status patient discharged to home to follow- up as scheduled. See problem list details for additional plan information. Charges/Coding Procedures Urinary/Genital 52xxx-59xxx: 06298-05 non-stress test Interp
== END 2022-07-13 20:03 | disposition home or self-care (01) ==
LOC: WPOUT 17:03 → WP 17:04
PROVIDERS: Visit Provider Obstetrics & Gynecology
DX: O76 Abnormality in fetal heart rate and rhythm complicating labor and delivery (principal); Z3A.00 Weeks of gestation of pregnancy not specified
CPT/HCPCS: 59025; 59050; 76816; 76819; 87081; 99221; G0378

== ENCOUNTER 2022-07-16 12:55 | Outpatient (CLI) | payer OTHER, SELFPAY ==
[2022-07-16 13:08] VITALS: BMI 27.8
[2022-07-16 13:13] VITALS: TEMP 36.7; O2SAT 97
[2022-07-16 13:17] VITALS: BP 113/74; PULSE 77
[2022-07-16 13:18] VITALS: PULSE 87; O2SAT 97
--- NOTE | 2022-08-08 08:29 | OB.TRI.PN ---
Progress Notes Date of Service: 07/16/22 Progress Note: Patient presents for triage evaluation secondary to dec fm FHT: 140 Moderate variability reactive no decelerations category I tracing [place]: no regualr Contractions Assessment and plan: decreased movement Reactive NST, reassuring maternal and status patient discharged to home to follow-up as scheduled. See problem list details for additional plan information. Charges/Coding Procedures Urinary/Genital [id number]: [id number] non-stress test Interp
== END 2022-07-16 13:50 | disposition home or self-care (01) ==
LOC: WPOUT 13:06 → WP 13:07
PROVIDERS: Referring Provider Obstetrics & Gynecology; Visit Provider Obstetrics & Gynecology
DX: O36.8190 Decreased fetal movements, unspecified trimester, not applicable or unspecified (principal); Z3A.00 Weeks of gestation of pregnancy not specified
CPT/HCPCS: 59025; 59050

== ENCOUNTER 2022-07-27 19:20 | Inpatient (IN) | payer OTHER, SELFPAY ==
[2022-07-27] VITALS (11 sets, daily range): BP systolic 109–121; BP diastolic 57–72; PULSE 59–68; TEMP 36.3–37.1; O2SAT 100; BMI 27.1
[2022-07-27 17:58] LABS: ROM Internal Control Test YES-OK TO RESULT pt. (Internal QC); ROM Patient Test Negative (Negative)
--- NOTE | 2022-07-27 19:59 | HP.PCM.OB_ITS ---
HPI - General General Date of Admission: 07/27/22 HPI Narrative RAJ MOTT, is a 36 y/o @ 37 weeks 6 days who presents to L&D at 5 cm/80/-1 station and was observed for 2 hours and made change to 6 cm/90/0. She was not feeling pain and consented to admission with possible augmentation. Maternal Data Information CHASE Calculator Estimated Delivery Date Method Current WG Current Estimate 08/11/22 LMP (Certain) 37w 6d PFSH PFSH Medical History Low-lying placenta in second trimester Home Medications vitamin#30 30 mg iron-10 mg iron-folic acid 1 mg-omg3 capsule 1 cap PO DAILY 01/12/19 [History Last Taken 07/27/22 08:00] Allergy/AdvReac Type Severity Reaction Status Date / Time adhesive tape AdvReac Mild hives Verified 07/27/22 17:00 latex AdvReac Rash Verified 07/27/22 17:00 Family History Father Crohns disease Grandmother Colon cancer Surgical History History of removal of skin mole Social History adopted: No household members: spouse and children housing: house number of children: 1 current occupational status: employed current occupation: [employer] pets and animals: No history of recent travel: No sexually active: Yes Smoking Status: Never smoker second hand exposure: No alcohol intake: never substance use type: does not use well-balanced diet: daily or most days caffeine: No eating out: rarely or never during the past year weight has: remained stable what type of physical activity do you participate in: walking frequency: daily duration: 45-60 minutes/day gordon/yarsanism: Mormon seatbelt use: always do you feel safe at home: Yes additional social history: Luis History 2 Elective abortions Hx Para 1 Spontaneous abortions Hx # Term Pregnancies Ectopic pregnancies Hx # Pregnancies Multiple births # of living children 1 Past Pregnancies Del. Date Name GA/Weeks Outcome Route Bth Weight Gen Labor Lgth Anesthesia Del Locatn Provider FOB 07/04/19 Yulisa live - full term 6lbs 3ounces Female 12 hours none [facility] Dr. Roger Smith Visit Details Expected Delivery Route/Plan Labor Preferences- CB/BF classes: no labor support person: Luis labor intervention preferences: [] pain management options preferred: limited cut cord/dad catch: cord : yes PP control planned: discussed discussed possible routes of delivery and associated risks: [] special requests: [] Plans Covid status: discussed Flu vaccine: discussed Tdap vaccine: no Rhogam: na LARC form signed: yes Problem list reviewed and updated with the most current plan of care details and appropriate orders placed. Relevant counseling for the gestational age provided. Continue routine care and follow up unless otherwise noted in visit notes/problem list details OB Flowsheet Initial Weight: Not Recorded Date -?-?-?-?-?-?-?-?-?-?-?-?- EGA Weight BP Urine Prot -?-?-?-?-?-?-?-?-?-?-?-?- Glucose FHR FuHt Pres Dilation -?-?-?-?-?-?-?-?-?-?-?-?- Effaced St Visit Note 01/05/22 -?-?-?-?-?-?-?-?-?-?-?-?- 8w 6d 154 lb 2 oz 114/71 -?-?-?-?-?-?-?-?-?--?-?-?- 168 -?-?-?-?-?-?-?-?-?-?-?-?- SM- CRL 2.06cm c ons with LMP 02/01/22 -?-?-?-?-?-?-?-?-?-?-?-?- 12w 5d 152 lb 8 oz 112/58 Nega tive -?-?-?-?-?-?-?-?-?-?-?-?- Negative 150 -?-?-?-?-?-?-?-?-?-?-?-?- SM- no vb crampi ng 03/03/22 -?-?-?-?-?-?-?-?-?-?-?-?- 17w 0d 155 lb 4 oz 122/77 Nega tive -?-?-?-?-?-?-?-?-?-?-?-?- Negative 143 -?-?-?-?-?-?-?-?-?-?-?-?- JV- no lof, vagi nal bleeding, and + fm. anatomy scan orderd and scheduled for 03/15/22. 03/31/22 -?-?-?-?-?-?-?-?-?-?-?-?- 21w 0d 158 lb 112/62 Negative -?-?-?-?-?-?-?-?-?-?-?-?- Negative 144 21 -?-?-?-?-?-?-?-?-?-?-?-?- JV- no lof, vagi nal bleeding, or cramping. low lying placenta 9mm from os. rpt at 28 weeks 04/26/22 -?-?-?-?-?-?-?-?-?-?-?-?- 24w 5d 162 lb 120/62 -?-?-?-?-?-?-?-?-?-?-?-?- 145 25 -?-?-?-?-?-?-?-?-?-?-?-?- SM- no vb lof go od fm no reular ctx 05/21/22 -?-?-?-?-?-?-?-?--?-?-?-?- 28w 2d 169 lb 8 oz 105/67 Nega tive -?-?-?-?-?-?-?-?-?-?-?-?- Negative 140 28 -?-?-?-?-?-?-?-?-?-?-?-?- SM- no vb lof go od fm no regular ctx 06/01/22 -?-?-?-?-?-?-?-?-?-?-?-?- 29w 6d 172 lb 8 oz 112/66 Nega tive -?-?-?-?-?-?-?-?-?-?-?-?- Negative 145 30 -?-?-?-?-?-?--?-?-?-?-?-?- JV- declines tda p and larc. no lof, vaginal bleeding, or dec fm. pt's daughter is having seizures from fevers. improving. 06/16/22 -?-?-?-?-?-?-?-?-?-?-?-?- 32w 0d 174 lb 6 oz 174 lb 12.8 oz 111/73 111/73 Negative -?-?-?-?-?-?-?-?-?-?-?-?- Negative 144 33 -?-?-?-?-?-?-?-?-?-?-?-?- JV- no lof, vagi nal bleeding, or dec fm. daughter feeling better. no complaints. 06/28/22 -?-?-?-?-?-?-?-?-?-?-?-?- 33w 5d 174 lb 4 oz 118/74 Nega tive -?-?-?-?-?-?-?-?-?-?-?-?- Negative 147 34 -?-?-?-?-?-?-?-?-?-?-?-?- MH-No VB, LOF. G ood FM. Denies concerns. 07/13/22 -?-?-?-?-?-?-?-?-?-?-?-?- 35w 6d 177 lb 4 oz 112/76 Nega tive -?-?-?-?-?-?-?-?-?-?-?-?- Negative 140 -?-?-?-?-?-?-?-?-?-?-?-?- SM- no vb lof go od fm n oregular ctx SM- no vb lof good fm n oreg ular ctx had audible decel to 105 110 reocmmend further evaluation on l and d right now and growth scan for ama 07/19/22 -?-?-?-?-?-?-?-?-?-?-?-?- 36w 5d 176 lb 6 oz 113/75 Nega tive -?-?-?-?-?-?-?-?-?-?-?-?- Negative 130 -?-?-?-?-?-?-?-?-?-?-?-?- MH-No Vb, LOF. Improved movement. Reactive NST. Neg GBS 07/27/22 -?-?-?-?-?-?-?-?-?-?-?-?- 37w 6d 173 lb 8 oz 112/73 Nega tive -?-?-?-?-?-?-?-?-?-?-?-?- Negative 120 37 Cephalic 5 -?-?-?-?-?-?-?-?-?-?-?-?- 80 -1 KW- no VB, LOF. +FM and cramping. To L&D to monitor for cervical change. JV notified and agrees with plan. ROS Constitutional Constitutional: Denies change in weight, fatigue, fever(s), headache(s), poor appetite or weakness Eyes Eyes: Denies blurry vision, change in vision, seeing flashes or spots in vision ENT HEENT: Denies dizziness, headache(s), loss taste/smell or sore throat Cardiovascular Cardiovascular: Denies chest pain, dizziness, dyspnea, irregular heart rhythm, leg edema, palpitations, rapid heart rate or vomiting Respiratory/Chest Respiratory/Chest: Denies chest tightness, cough, dyspnea or breast pain Gastrointestinal Gastrointestinal: Denies abdominal pain, anorexia, constipation, cramping, diarrhea, hemorrhoids, vomiting or weight changes Genitourinary Genitourinary: Denies dysuria, flank pain, genital lesions, genital pain, urinary frequency or urinary urgency Musculoskeletal Musculoskeletal: Denies back pain, difficulty walking, joint pain, limited range of motion, muscle cramps or numbness Integumentary Integumentary: Denies lesions or unusual bruising Neurologic Neurologic: Denies abnormal movements, abnormal speech, dizziness, numbness, seizure-like activity or syncope Psychiatric Psychiatric: Denies anxiety, behavioral changes, change in appetite, change in libido, cognitive impairment, confusion, depression, difficulty concentrating, hallucinations or suicidal thoughts Endocrine Endocrinology: Denies excessive sweating, polydipsia or polyuria Hematologic/Lymphatic Hematologic/Lymphatic: Denies easy bleeding, easy bruising or lymphadenopathy Allergic/Immunologic Allergic/Immunologic: Denies itchy eyes, lip swelling, seasonal rhinorrhea, rhinitis, throat swelling, tongue swelling, eczemia, wheezing or asthma Vital Signs Vital Signs Vital Signs: 07/27/22 17:06 07/27/22 17:06 07/27/22 17:06 Temperature Temperature Source Pulse Rate 61 Blood Pressure 121/72 H BP Systolic 121 BP Diastolic 72 Pulse Ox 100 07/27/22 17:07 07/27/22 17:06 07/27/22 17:06 Temperature 97.3 F L 97.8 F Temperature Source Temporal Pulse Rate Blood Pressure BP Systolic BP Diastolic Pulse Ox Weight Weight: 173 lb 11.588 oz Body Mass Index (BMI) 27.1 Physical Exam Const alert, oriented x3, no apparent distress and healthy appearing General Appearance: cooperative; Negative for anxious HEENT normocephalic Face and Sinus: normal facial exam Eyes EOMs intact bilaterally and no scleral icterus General Eye: normal appearance of both eyes Neck full ROM and supple Lymph Lymphatic: no lymphadenopathy noted Chest Chest: abnormal inspection of the chest Resp normal respiratory effort Effort and Inspection: able to speak in complete sentences Cardio regular rate GI soft to palpation and non-tender Inspection: gravid Palpation: soft; Negative for tender external exam normal Amniotic Fluid: other membranes ruptured with clear fluid return. cx now 7.5/85/+1 Back/Spine no CVA tenderness Extremity normal to inspection, full ROM and no clubbing, cyanosis or edema General Extremity: Negative for calf tenderness or edema Skin Lesions: no lesions Rashes: no rashes Psych mental status grossly normal Labs Labs Labs: Blood Type O POSITIVE Antibody Screen NEGATIVE Hct 36.7 % (37-47) L Hgb 12.0 g/dL (12.0-15.0) Obstetrics US Syphilis Total Ab Non-reactive Rubella IgG Antibody Reactive (Nonreactive) Hep Bs Antigen Non-Reactive (Nonreactive) Chlamydia DNA (NARCISO) Negative (Negative) Neisseria gonorrhoeae DNA (NARCISO) Negative (Negative) HIV 1&2 Antibody Non-Reactive (Nonreactive) Glucose 1 Hr 50 gm 89 mg/dL (70-140) Rhogam given: No Miscellaneous Test Assessment & Plan (1) Abnormal dilation of cervix before onset of labor, antepartum: COMMENT: /-1 to L&D for monitoring and recheck (2) heart rate decelerations affecting management of mother: COMMENT: no significant decels picked up during extended monitoring. one broken up area, overall moderate variability and multiple accelerations. cat 1 strip. normal growth and emile 10 (3) AMA (advanced maternal age) multigravida 35+: COMMENT: growth us: 07/13 EFW- 35% (4) Supervision of normal first : COMMENT: PRR ,boy, CHASE 08/11/22, boy PC Yulisa, Spouse Luis (5) : QUALIFIERS: Weeks of gestation: 37 weeks Qualified Code(s): Z3A.37 - 37 weeks gestation of COMMENT: GBS neg. anatomy nl, NIPT low risk, declined Carrier testing, 05/12 nl growth PLAN: Plan Patient presents IAL, plan expectant management for , pitocin PRN Pain management: no epidural. GBS negative . Management of any complications: none I have reviewed the [facility] and made any clinically relevant updates.
[2022-07-27] MEDS: Lactated Ringers 1,000 ML 200 ML IV (20:00)
[2022-07-27 20:05] LABS: Absolute Neutrophil Count 7.5 X10^3/uL (2.0-7.7); Basophil# 0.05 X10^3/uL; Basophil% 0.5 % (0-1); Eosinophil# 0.17 X10^3/uL; Eosinophils% 1.7 % (0-5); Hematocrit 35.4 % (37-47); Lymphocyte % 18.5 % (19-41); Mean Corp Hgb Conc 33.9 g/dL (32-36); Mean Corpuscular Hgb 31.2 pg (27.0-32.0); Mean Corpuscular Volume 91.9 fL (81-99); Mean Platelet Vol. 10.9 fl (6.2-12.0); Monocyte# 0.62 X10^3/uL; NRBC Flagged by Analyzer 0 % (0-5); Neutrophil # 7.45 X10^3/uL (2.7-7.7); Neutrophil % 72.7 % (47-70); Platelet Count 182 K/mm3 (150-450); RBC Distribution Width SD 40.6 fl (35.1-43.9); Red Blood Count 3.85 M/mm3 (4.2-5.4); White Blood Count 10.3 K/mm3 (4.4-11.0)
[2022-07-27 21:25] LABS: Syphilis Antibodies Non-reactive
[2022-07-27] MEDS: Oxytocin 10 UNITS/ML Vial IM (22:13)
--- NOTE | 2022-07-27 22:20 | EX.PCM.OBRPT ---
Assessment & Plan (1) Abnormal dilation of cervix before onset of labor, antepartum: COMMENT: /-1 to L&D for monitoring and recheck (2) heart rate decelerations affecting management of mother: COMMENT: no significant decels picked up during extended monitoring. one broken up area, overall moderate variability and multiple accelerations. cat 1 strip. normal growth and emile 10 (3) AMA (advanced maternal age) multigravida 35+: COMMENT: growth us: 07/13 EFW- 35% (4) Supervision of normal first : COMMENT: PRR ,boy, CHASE 08/11/22, boy PC Yulisa, Spouse Luis (5) : QUALIFIERS: Weeks of gestation: 37 weeks Qualified Code(s): Z3A.37 - 37 weeks gestation of COMMENT: GBS neg. anatomy nl, NIPT low risk, declined Carrier testing, 05/12 nl growth Maternal Data Information CHASE Calculator Estimated Delivery Date Method Current WG Current Estimate 08/11/22 LMP (Certain) 37w 6d Vaginal Delivery Maternal Presentation Maternal Presentation: Active Labor Type of Induction: Amniotomy Operative Information Date of Procedure: 07/27/22 Pre-Operative Diagnosis: @ 40 weeks 1 day, active labor Post-Operative Diagnosis: @ 40 weeks 1 day, active labor Type of Anesthesia: None Estimated Blood Loss: 100cc Findings Description of Procedure: Patient began pushing and delivered the head in the MERLE presentation. The head was delivered atraumatically and a loose nuchal cord ?1 was identified and easily reduced over the 's head. The anterior and posterior shoulders delivered without complication followed by the rest of the and the infant was placed on the maternal abdomen. Delayed cord clamping was employed for approximately 60 seconds. Cord was clamped and cut and gentle traction was applied to the cord and the placenta delivered spontaneously immediately following it was noted to be intact with three-vessel cord. The perineum and vagina were inspected and noted to have no laceration. EBL was 100 cc. Patient and infant tolerated delivery well. Presentation: Vertex Amniotic Membrane Rupture Type: Artificial Time of Membrane Rupture: 0 Amniotic Fluid Description: Clear Placental Delivery Description: Spontaneous Placenta Disposition: [facility] Cord Vessel Description: 3 Vessels Cord Entanglement: Around neck x 1, loose Nuchal Cord Compression: With compression A Gender: Male (1 minute): 8 (5 minute): 9 Delayed Cord Clamping: Yes Post Vaginal Delivery Medications Given After Delivery: - (IM pitocin) Episiotomy Description: None Laceration: None Complication Complications: None Multi Select Codes Urinary/Genital Urinary/Genital CPT Codes: 16470 [facility]
--- NOTE | 2022-07-27 22:24 | DCINST_ITS ---
Discharge Instructions Diet Discharge Diet: No restrictions Activity Discharge Activity: Return to Normal Activity, May Not Drive (while taking narcotic pain medications.) and May Shower May resume sexual activity in: 4-6 weeks Dressing / Incision Call your doctor if your incision/area has: Continuous Slow Oozing, Sudden Increased Bleeding, Increased Pain/ Swelling, Increased Redness and Foul Smelling Discharge Follow Up Care Please Follow Up With: Bianca Ziegler, DO When: Call [phone] to make an appointment with your doctor in 6 weeks. If you had elevated blood pressure or 4th degree laceration, you will need to be seen in 2 weeks. Test Results: Test results from this visit will be discussed in further detail at your follow- up appointment, if applicable. Discharge Plan Admission Admit Date/Time: 07/27/22 19:20 Attending Provider: Bianca Ziegler Primary Care Provider: Care Physician,No Primary Discharge Orders/Prescriptions Prescriptions: No Action vitamin#30 30 mg iron-10 mg iron-folic acid 1 mg-omg3 capsule 30 mg iron-10 mg iron-1 mg capsule 1 cap PO DAILY Referrals / Follow Up: Care Physician,No Primary [Primary Care Provider] -
[2022-07-27] MEDS: Oxytocin 15 Units/NS 250ml 15 UNITS/250 ML IV.SOLN 167 UNITS IV (22:25)
[2022-07-28] VITALS (8 sets, daily range): BP systolic 86–123; BP diastolic 48–80; PULSE 55–67; RESP 14–18; TEMP 36–37.2; O2SAT 95–97
[2022-07-28] MEDS: Ibuprofen 600 MG Tablet PO ×2 (00:54→08:18)
--- NOTE | 2022-07-28 07:52 | PN.OBGYN_ITS ---
Subjective Subjective Patient doing well without complaints. Tolerating PO. Ambulating and voiding without difficulty. Feeding well. Denies chest pain, shortness of breath, calf pain/swelling, fevers, chills, lightheadedness. Objective Data Objective Data Vital Signs: Vital Signs Temp Pulse Resp BP Pulse Ox O2 Del Method 97.5 F L 55 L 16 111/67 96 Room Air 07/28/22 06:00 07/28/22 06:00 07/28/22 06:00 07/28/22 06:00 07/28/22 06:00 07/28/22 06:00 Oxygen Delivery Method Room Air Weight: 173 lb 11.588 oz Body Mass Index (BMI) 27.1 Intake & Output: Intake and Output for Last 24 Hours 07/26/22 07/27/22 07/28/22 23:59 23:59 23:59 Intake Total 950 / 950 Output Total 700 / 700 1000 / 1000 Balance 250 / 250 -1000 / -1000 Lab / Micro Data Result Diagrams: 07/27/22 19:45 Labs: Laboratory Results - last 24 hr 07/27/22 17:19: Vag Amniotic Fld Detect Negative 07/27/22 19:45: WBC 10.3, RBC 3.85 L, Hgb 12.0, Hct 35.4 L, MCV 91.9, MCH 31.2, MCHC 33.9, RDW Std Deviation 40.6, RDW Coeff of Elvis 12.0, Plt Count 182, MPV 10.9, Immature Gran % (Auto) 0.600, Neut % (Auto) 72.7 H, Lymph % (Auto) 18.5 L, [place] % (Auto) 6.0, Eos % (Auto) 1.7, Baso % (Auto) 0.5, Absolute Neuts (auto) 7.5, Absolute Lymphs (auto) 1.90, Nucleated RBC % 0 07/27/22 19:45: Blood Type O POSITIVE, Antibody Screen NEGATIVE 07/27/22 19:45: Syphilis Total Ab Non-reactive Physical Exam Const alert and oriented x3 HEENT normocephalic Eyes PERRL Neck full ROM Resp normal respiratory effort GI soft to palpation GI Narrative: FF below U Assessment & Plan (1) Spontaneous vaginal delivery: COMMENT: 07/27/22 Boy JV PLAN: Plan s/p PPD # 1 1. routine post delivery care 2. breast feeding- support given 3. rh positive 4. rubella immune
== END 2022-07-28 22:45 | disposition home or self-care (01) | DRG 807 ==
LOC: WPOUT 19:25 → WP 19:25
PROVIDERS: Admitting Provider Obstetrics & Gynecology; Visit Provider Obstetrics & Gynecology
DX: O48.0 Post-term pregnancy (principal); Z37.0 Single live birth; O69.81X0 Labor and delivery complicated by cord around neck, without compression, not applicable or unspecified; Z3A.40 40 weeks gestation of pregnancy; O76 Abnormality in fetal heart rate and rhythm complicating labor and delivery
CPT/HCPCS: 59025; 59050; 84112; 85025; 86780; 86850; 86900; 86901; 99221; J7120; G0378

== ENCOUNTER → 2024-09-14 | Outpatient (CLI) | payer OTHER, SELFPAY ==
--- NOTE | 2024-09-14 11:33 | RAD_ITS ---
PROCEDURE: SCOLIOSIS 2 OR 3 VIEWS 09/14/2024 REASON FOR EXAM: SCOLIOSIS TECHNIQUE: Standing AP view(s) of the thoracic and lumbar spine. COMPARISON: None FINDINGS: Curvature: 23 degrees of levoconvex scoliosis centered at L2-L3 level. Other findings: None Other: RAD/Scoliosis 2 or 3 views IMPRESSION: 23 degrees of levoconvex scoliosis centered at the L2-L3 level. Reading Location: [facility]
== END | disposition home or self-care (01) ==
LOC: MTRAD 11:32
PROVIDERS: PCP Family Medicine; Referring Provider Family Medicine; Visit Provider Family Medicine
DX: M41.9 Scoliosis, unspecified (principal)
CPT/HCPCS: 72082

== ENCOUNTER 2024-11-28 09:00 | Outpatient (RCR) | payer OTHER, SELFPAY ==
--- NOTE | 2024-10-23 15:40 | HP.PTEVAL ---
Patient's Visit Information Visit Information Visit Information: RAJ MOTT is a 38 year old F referred to Physical Therapy by Dr. Rolando Mares MD with a diagnosis of SCOLIOSIS. Date of Evaluation: 10/03/24 Physical Therapist: Lori Gauthier PT, Cert MDT Visit Plan Frequency: 1x/Week Duration: 6-8 VISITS Plan: EDUCATION IN HEALTHY BACK HABITS AND PROPER POSTURE CONTROL. CORE STRENGTHEING WITH FOCUS ON CONVEX SIDE OF LUMBAR CURVE. CORE STRETCHING WITH FOCUS ON CONCAVE SIDE OF CURVE. MILTON LE STRETCHING. HEP INST. Subjective Subjective: Work/Leisure: TEACHER Present symptoms: INTERMITTENT MID LOWER BACK PAIN Present since: ABOUT 5 YEARS AGO Pain Scale: WORST 7/10, LEAST 0/10 Currently: 0/10 Is it getting better, worse or staying the same: STAYING THE SAME Commenced as a result of: SCOLIOSIS/STARTED AFTER HAVING CHILDREN Worse: CLEANING ALL DAY AND LIFTING KIDS A LOT ON A TUESDAY Better: LAYING DOWN DECREASES PAIN AND RESTING FOR DAY ABOLISHES PAIN Disturbed sleep: NO Previous history/Previous treatment: FLAGGED FOR SCOLIOSIS IN MIDDLE SCHOOL. WASN'T HAVING PAIN. DID NOT HAVE X-RAYS. CHIROPRACTIC. FOR HIP PAIN/THEY GET OUT OF PLACE AND HE PUTS THEM BACK IN. Treatment this episode: WENT TO DOCTOR FOR BRONCHITIS. PULLED MUSCLE UPPER BACK FROM COUGHING WHICH HAS RESOLVED. TOLD DOCTOR CHIROPRACTOR SAID SHE HAS SCOLIOSIS AND IT WOULD COST ABOUT $10,000 TO DO TREATMENT TO RESOLVE SO PCP DID X-RAYS THEN REFERRED TO PT. Coughing/sneezing/straining: NEGATIVE FOR BACK PAIN Gait: NORMAL. WALKS 3 MILES A DAY. Bowel or Bladder Dysfunction: NO Accidents: NO Unexplained weight loss: NO Imagin DEG LEVOCONVEX SCOLIOSIS CENTERED AT L2-L3 PMH/Recent major surgery: UNREMARKABLE Objective Objective: Sitting/Standing Posture: IN STANDING R ILIAC CREST IS HIGHER THAN L AND R SHLD LEVEL HIGHER THAN L. LEVOSCOLIOSIS. Other Observations: INDEP GAIT AND TRANSFERS. SLOUCHING, BENDING AND TWISTING IN CLINIC WITHOUT GUARDING OR APPARENT AWARENESS. Sensory deficit: MILTON LE LIGHT TOUCH SENSATION GROSSLY INTACT AND SYMMETRICAL. ROM deficit: L HIP IR TIGHTNESS > R AND R HIP ER TIGHTER THAN L. MILTON HIP FLEXOR, HS AND CALF TIGHTNESS. Motor deficit: MILTON LE'S GROSSLY 5/5 EXCEPT HIP ROTATORS AND ABDUCTORS 4/5. Dural Signs: NEGATIVE MILTON LE'S Lumbar mvmt loss: flex - NIL ext - MIN TO MOD R SG - MIN L SG - NIL PATIENT DENIES PAIN WITH LUMBAR ROM TESTING . Core strength: FAIR Balance/Special Test Scores Oswestry Low Back Score: 4 Goals Goal 1:: DECREASE C/O BACK PAIN TO 0-3/10 WITH TUESDAY HOUSEWORK AND CHILDCARE ACTIVITIES Goal Time Frame: 4-6 Weeks Goal 2:: PATIENT WILL BE ABLE TO VERBALIZE HEALTHY BACK HABITS FOR SITTING, STANDING, BENDING AND LIFTING. Goal Time Frame: 4-6 Weeks Goal 3:: PATIENT WILL HAVE 5/5 MILTON LE STRENGTH AND GOOD CORE STRENGTH WITH TESTING. Goal Time Frame: 4-6 Weeks Goal 4:: INDEP HEP Goal Time Frame: 4-6 Weeks Rehabilitation Potential Physical Therapy Diagnosis: CORE AND HIP WEAKNESS AND STIFFNESS WITH SCOLIOSIS Rehabilitation Potential: Good Anticipated Interventions Patient/Client Instruction: Educate patient on: Condition, Plan of Care and Risk Factors For the Purpose of:: To improve self management Therapeutic Exercise to Include: Strength training, Body mechanics, Postural training, Flexibilty training, Neuromotor development and Dynamic Lumbar Stabilization For the Purpose of:: To decrease pain, To improve muscle performance and motor function, To increase tolerance to activity/condition/position, To improve ability of physical actions for home/community/work/leisure, To increase flexibility/ROM and To improve self management Text: Thank you for the opportunity to evaluate your patient. For Medicare and Medicare HMO plans, please review the plan of care and approve it. It will need to be FAXED BACK to us at [phone] for Medicare purposes. For Medicare only, by signing this I certify the plan of care. Please let me know if there are questions or concerns regarding this plan of care. Physician Signature: Date:
--- NOTE | 2024-11-28 13:41 | HP.PTDCSUM_ITS ---
Discharge Summary D/C summary: It has been my pleasure to treat RAJ MOTT referred by Dr. Rolando Mares MD, with the diagnosis of SCOLIOSIS for a total of 7 visit(s). Discharge Date: 11/28/24 Please see the following information for a summary of their discharge status. Subjective Subjective: PATIENT REPORTS SHE WENT PADDLE BOARDING November AND WALKED ON THE TREADMILL 3 MILES THE NEXT DAY ABOUT 3 MILES (3MPH) THEN HAD SOME R LOW BACK SORENESS RATED 1/10. OTHER THAN THAT HASN'T BEEN HAVING MUCH PAIN AT ALL. PATIENT REPORTS SHE HAS BEEN ACTIVE AND NOT TAKING IT EASY. WENT THROUGH ALL OF THE TOYS YESTERDAY, DOING A LOT GETTING READY FOR A GARAGE SALE, HOEING THE GARDEN AND BEING ACTIVE OTHERWISE. REPORTS BEING MUCH MORE AWARE OF USING BETTER BODY MECHANICS AND BETTER POSTURE CONTROL ALONG WITH OTHER ACTIVITY MODIFICATIONS TAUGHT WITH BENEFIT. ALSO REPORTS SHE IS GETTING MORE COMPLIANT WITH HEP AND WILL HAVE MORE TIME FOR HEP AFTER GARAGE SALE IS OVER. Pain Back Pain: Pain Intensity (Out of 10): 0 Overall Improvement % Improvement: 70 Objective Objective/Function: PATIENT WAS SEEN TODAY FOR RE-ASSESSMENT OF PROGRESS TOWARD THE SET PT GOALS AND THE NEED FOR FURTHER PHYSICAL THERAPY VS READINESS FOR DISCHARGE. ALL PT GOALS HAVE BEEN MET AND PATIENT IS APPROPRIATE FOR AND AGREE ABLE TO DISCHARGE. RECOMMENDED USE OF LUMBAR SUPPORT IN SITTING, AVOIDING PROLONGED SITTING AND PERIODIC UNLOADING IN LYING TO CONTROL INFLAMMATION NEEDED WHEN DOING A LOT OF LIFTING AND HOUSEWORK. INSTRUCTED IN HIP HINGE FOR BENDING AND TURNING WITH FEET TO MINIMIZE REPETATIVE TWISTING WITH NORMAL DAILY ACTIVITIES. LAST EX SESSION INCLUDING THE FOLLOWING AND WAS TOLERATED WELL: Cat-camel: 2x10 each 3-way Kim pose: 1x30 each Lumbar Lock T-Spine Rot: 2x10 each Bird-dox12 Kneeling Ball T's, Y's and W's: 2# 2x12 bilateral Left Oblique Side Crunch: 2x15 (Lay on R Side) Short Side Plank Hip Dips: 2x15 each side Standing Row: 35# 3x12 LAE: 25# 3x12 w/rope Band Pull Apart: Yellow JS 3x12 Bilateral ER: Yellow JS 3x12 Shoulder Shrugs: 9#(x2) 3x12 Goals Goal 1:: DECREASE C/O BACK PAIN TO 0-3/10 WITH TUESDAY HOUSEWORK AND CHILDCARE ACTIVITIES Goal Progress: Goal Met Goal 2:: PATIENT WILL BE ABLE TO VERBALIZE HEALTHY BACK HABITS FOR SITTING, STANDING, BENDING AND LIFTING. Goal Progress: Goal Met Goal 3:: PATIENT WILL HAVE 5/5 MILTON LE STRENGTH AND GOOD CORE STRENGTH WITH TESTING. Goal Progress: Goal Met Goal 4:: INDEP HEP Goal Progress: Goal Met Plan Plan: D/C. PATIENT AGREEABLE. D/C Information d/c sentence: If there are questions or concerns regarding this patient's physical therapy, please feel free to call me at [phone]. Thank you for the referral of this patient. Sincerely, Lori Gauthier, PT, Cert MDT Balance/Gait/Functional tests Balance/Special Test Scores Oswestry Low Back Score: 1 Improvement % Improvement: 70
== END 2024-11-28 19:00 | disposition home or self-care (01) ==
LOC: PT 09:00
PROVIDERS: PCP Family Medicine; Referring Provider Family Medicine; Visit Provider Family Medicine
DX: M41.9 Scoliosis, unspecified (principal)
CPT/HCPCS: 97110; 97161; 97530